=== PATIENT | female | born 1975 | race Caucasian/White ===

== ENCOUNTER 2022-12-27 06:04 | Day surgery (SDC) | payer BC, OTHER ==
[2022-12-23 10:56] VITALS: BMI 23.1
[2022-12-23 11:12] LABS: Hemoglobin 16.6 g/dL (12.0-15.5); Mean Corpuscular HGB CONC 34.2 g/dL (32.0-36.0); Mean Corpuscular Volume 93.6 fl (81.6-98.3); Mean Platelet Volume 9.4 fl (7.4-10.4); Platelet Count 315 10x3/uL (150-450); RBC Distribution Width 13.6 % (11.5-14.5); Red Blood Cell (RBC) Count 5.19 10x6/uL (3.90-5.03); White Blood Cell (WBC) Count 10.8 10x3/uL (3.5-10.5)
[2022-12-23 11:35] LABS: BHCG - Serum Negative (NEGATIVE); Pregs Control Background? CLEAR/WHITE (CLR/WHITE); Pregs Control Bar Appear? YES (CONTROL BAR)
[2022-12-27] MEDS ORDERED: Bupivacaine HCl 0.5%/Epinephrine 1:200,000/PF 30 ml Vial ONE (06:14)
[2022-12-27] MEDS ORDERED: Gabapentin 300 MG CAP ONE (06:36)
[2022-12-27] MEDS ORDERED: CeleCOXIB 100 MG CAP ONE (06:37)
[2022-12-27] MEDS ORDERED: Famotidine/PF 20 mg/2ml Vial ONE (06:37)
[2022-12-27] MEDS ORDERED: CEFAZOLIN 2 GM VIAL ONE (07:26)
[2022-12-27] MEDS ORDERED: Scopolamine 1.5 mg/72 hour Patch ONE (07:28)
[2022-12-27] MEDS ORDERED: SUGAMMADEX SODIUM 200 MG/2 ML VIAL ONE (07:30)
[2022-12-27] MEDS ORDERED: HYDROmorphone 0.5 MG/0.5 ML SYRINGE ONE (07:30)
[2022-12-27] MEDS ORDERED: Propofol 1,000 MG/100 ML VIAL IV ONE (07:31)
[2022-12-27] MEDS ORDERED: Esmolol 100 MG/10 ML VIAL ONE (07:34)
[2022-12-27] MEDS ORDERED: Fentanyl 100 MCG/2 ML VIAL ONE (07:34)
[2022-12-27] MEDS ORDERED: Rocuronium Bromide 10 MG/ML (10ML VIAL) ONE (07:34)
[2022-12-27] MEDS ORDERED: Midazolam HCl 2 mg/2 ml Vial ONE (07:34)
[2022-12-27] MEDS ORDERED: Ondansetron PF 4 MG/2 ML Vial ONE (07:34)
[2022-12-27] MEDS ORDERED: Dexamethasone 4 mg/ml Vial ONE (07:34)
[2022-12-27] MEDS ORDERED: Lidocaine 1% PF 5 ML VIAL ONE (07:39)
[2022-12-27] MEDS ORDERED: Ketorolac Tromethamine 30 MG/ML VIAL ONE (08:26)
[2022-12-27] MEDS ORDERED: Ropivacaine 0.2% 550 ML 550 ML NERVE BLCK SCH (09:00)
[2022-12-27] MEDS ORDERED: HYDROcodone/Acetaminophen 5/325 mg Tablet ONE (11:02)
== END 2022-12-27 11:40 | disposition home or self-care (01) ==
LOC: CSHSDC 06:04
PROVIDERS: ATTEND Obstetrics & Gynecology
PROC: 0UB74ZZ Excision of Bilateral Fallopian Tubes, Percutaneous Endoscopic Approach (ICD-10-PCS; principal; 2022-12-27)
PROC: 0UT94ZZ Resection of Uterus, Percutaneous Endoscopic Approach (ICD-10-PCS; principal; 2022-12-27)
DX: N80.03 Adenomyosis of the uterus (principal); N92.0 Excessive and frequent menstruation with regular cycle; N72 Inflammatory disease of cervix uteri; N87.0 Mild cervical dysplasia; N99.85 Post endometrial ablation syndrome; Z88.6 Allergy status to analgesic agent
CPT/HCPCS: 84703; 85027; 86850; 86900; 86901; 88307; A4306; J1100; J1170; J1885; J2250; J2405; J2704; J2795; J3010; S0028